=== PATIENT | male | born 1970 ===

== ENCOUNTER 2019-09-20 12:44 | Emergency (ER) | payer SELFPAY ==
[2019-09-20] MEDS ORDERED: Tetan/Diph/Pertus SYR(Tdap)* 0.5 ML SYR(BOOSTRIX) use SYR contains LATEX IM ONE (14:01)
--- NOTE | 2019-09-20 14:01 | ED ---
Laceration/Wound HPI - HPI Summary HPI Summary: Patient is a 48-year-old left-hand dominant male who presents to the emergency department with a laceration to his left second finger at the MTP joint after slipping on ice and squeezing a soda can. He says it can cut his finger. He reports 2 out of 10 pain at this time which does not radiate. He has full range of motion and sensation to his left hand. He states he is not up-to-date on his tetanus. He denies use of blood thinners or any bleeding disorders. He states his wound is not actively bleeding. He does not believe there are any foreign bodies in the room. He denies fever, chest pain, abdominal pain, and urination. - History of Current Complaint Stated Complaint: LAC LT HAND PER PT Time Seen by Provider: 09/20/19 13:59 Hx Obtained From: Patient Mechanism of Injury: Sharp/Blunt Trauma - Cut on a soda can Onset/Duration: Sudden Onset, Lasting Hours Aggravating: Movement Alleviating: Other - rest Timing: Constant Onset Severity: Moderate Current Severity: Moderate Pain Intensity: 6 Pain Scale Used: 0-10 Numeric Associated Signs & Symptoms: Pain Related Hx: Dominant Hand (Left) - Allergy/Home Medications Allergies/Adverse Reactions: Allergies Allergy/AdvReac Type Severity Reaction Status Date / Time No Known Allergies Allergy Verified 09/20/19 12:57 PMH/Surg Hx/FS Hx/Imm Hx - Immunization History Date of Tetanus Vaccine: unknown Infectious Disease History: No Infectious Disease History: Denies: Traveled Outside the [place] in Last 30 Days - Social History Alcohol Use: None Substance Use Type: Reports: None Smoking Status (MU): Light Every Day Tobacco Smoker Review of Systems Constitutional: Negative Cardiovascular: Negative Respiratory: Negative Musculoskeletal: Negative Positive: Other - laceration All Other Systems Reviewed And Are Negative: Yes Physical Exam Triage Information Reviewed: Yes Vital Signs On Initial Exam: Initial Vitals Temp Pulse Resp BP Pulse Ox 97.3 F 76 16 138/92 96 09/20/19 12:55 09/20/19 12:55 09/20/19 12:55 09/20/19 12:55 09/20/19 12:55 Vital Signs Reviewed: Yes Appearance: Positive: Well-Appearing, No Pain Distress, Well-Nourished Skin: Positive: Warm, Skin Color Reflects Adequate Perfusion, Other - 2 cm in length by 3 mm deep laceration to the anterior aspect of the left index finger near the MTP joint. No evidence of foreign body. Hemostasis is achieved. Head/Face: Positive: Normal Head/Face Inspection Eyes: Positive: Normal, EOMI ENT: Positive: Hearing grossly normal Respiratory/Lung Sounds: Positive: Clear to Auscultation, Breath Sounds Present Cardiovascular: Positive: Normal, S1, S2 Neurological: Positive: Sensory/Motor Intact, Alert, Oriented to Person Place, Time Psychiatric: Positive: Normal AVPU Assessment: Alert Procedures - Sedation Patient Received Moderate/Deep Sedation with Procedure: No - Laceration/Wound Repair 1 Location: upper extremity Description: Linear Anesthesia: Local, 1.0% Length, Depth and Shape: 2cm length, 3mm deep Betadine Prep?: No - clorahexadine Irrigated w/ Saline (ccs): 200 Laceration/Wound Explored: clean, no foreign body removed Closure: Single Layer Debridement: - none Suture Type: Nylon - 4-0 prolene Number of Sutures: 7 Layer Closure?: No Sterile Dressing Applied?: Yes Diagnostics - Vital Signs Vital Signs Temp Pulse Resp BP Pulse Ox 09/20/19 12:55 97.3 F 76 16 138/92 96 - Laboratory Lab Statement: Any lab studies that have been ordered have been reviewed, and results considered in the medical decision making process. Laceration Repair Course/Dx - Course Course Of Treatment: Patient was evaluated in the emergency department today for a 2 cm laceration to the anterior aspect of his left second finger near the MCP. The patient was seen and examined. No laboratory studies or radiological images were deemed necessary. The patient had full strength, range of motion, and was neurovascularly intact. The laceration was repaired using 7 4-0 nylon sutures in a simple interrupted fashion. The laceration measured 2 cm in length and 3 millimeters in depth. This was a simple laceration repair and required no debriding. Laceration repair was done by this television script writer. The indications, risks, and benefits were explained to the patient and verbal informed consent was obtained. Anesthesia was performed using 1% lidocaine without epinephrine using local infiltration. The wound was soaked in chlorhexidine and saline prior to procedure. After local anesthesia of the wound was again irrigated with a pressure syringe using 200 cc of saline. The patient was prepped and draped in usual fashion. 7 4-0 nylon sutures were used for approximation of the wound placed in simple interrupted fashion. Minimal blood loss occurred during procedure. Patient tolerated well. After the procedure and remained neurovascularly intact. A dressing was placed on the wound as well as a splint to ensure no wound dehiscence occurs. The patient was stable at time of discharge was given directions as to how to care for his stitches as well as to follow-up in 10 days for suture removal at this emergency Department. He was told to return to the emergency department if he develops any new or worsening symptoms. - Differential Dx Differental Diagnoses: Avulsion, Laceration, Tendon Laceration - Clinical Impression Provider Diagnoses: Laceration of left index finger w/o foreign body w/o damage to nail Discharge ED - Sign-Out/Discharge Documenting (check all that apply): Patient Departure - Discharge Plan Condition: Improved Disposition: HOME Patient Education Materials: Care For Your Stitches (ED), Laceration (ED) Referrals: No Primary Care Phys,NOPCP [Primary Care Provider] - Additional Instructions: He was seen in the emergency department today for laceration to her left index finger. You are to follow up in 10 days with you primary care provider, or this emergency department for your sutures to be removed and to have your wound checked. Keep your wound and bandage dry for 24 hours. After 24 hours you may remove the bandage and gently clean the wound with warm soap and water. After cleaning pat the wound dry. Do this daily until complete healing of the wound. To facilitate wound healing be sure to remove any crusts to your wound and then apply ointment to the wound prior to bandage placement. After closure of the wound apply sunscreen to reduce scarring and protect your skin. If you notice any signs of infection including large areas of redness around the wound, red streaking from the wound, foul smelling or purulent drainage, or dehistance please return to the emergency department immediately. Please keep your finger splinted for at least 5 days to ensure proper closure of your wound. - Billing Disposition and Condition Condition: IMPROVED Disposition: Home - Attestation Statements Provider Attestation: I was available for consult. This patient was seen by the BERONICA. The patient was not presented to, seen by, or examined by me. -
[2019-09-20 15:49] VITALS: BP 154/81
== END 2019-09-20 15:45 | disposition home or self-care (01) ==
LOC: ED 12:44
DX: S61.211A Laceration without foreign body of left index finger without damage to nail, initial encounter (principal); W26.8XXA Contact with other sharp object(s), not elsewhere classified, initial encounter; Y92.9 Unspecified place or not applicable; Z23 Encounter for immunization; F17.200 Nicotine dependence, unspecified, uncomplicated
CPT/HCPCS: 12001; 90471; 90715; 99282